=== PATIENT | male | born 1955 | race Two or more races ===

== ENCOUNTER 2020-08-27 03:21 | Emergency (ER) | payer OTHER ==
[2020-08-27 03:44] VITALS: BP 114/82; PULSE 73; TEMP 97.5; BMI 27.8
[2020-08-27 04:56] LABS: BASO % 0.2 % (0-2.0); EOS % 0.7 % (0-4.5); HEMATOCRIT 40.1 % (35.4-49); HEMOGLOBIN 13.3 GM/dL (11.7-16.9); LYMPH % 15.5 % (8-40); MCH 29.8 pg (25.7-33.7); MCHC 33.3 g/dl (32.0-35.9); MEAN CELL VOLUME 89.5 fl (80-96); MEAN PLT VOLUME 8.1 fl (7.5-11.1); MONO % 2.9 % (3.8-10.2); NEUT % 80.7 % (42.8-82.8); PLATELET COUNT 278 K/MM3 (134-434); RBC 4.48 M/mm3 (4.00-5.60); RDW 14.7 % (11.9-15.9); WHITE BLOOD COUNT 11.3 K/mm3 (4.0-10.0)
[2020-08-27 05:18] LABS: CHLORIDE 105 mmol/L (98-107); SODIUM 138 mmol/L (136-145)
[2020-08-27 05:20] LABS: BLOOD UREA NITROGEN 20.9 mg/dL (7-18); CALCIUM 8.8 mg/dL (8.5-10.1)
[2020-08-27 05:21] LABS: ALBUMIN 3.9 g/dl (3.4-5.0); ANION GAP 10 MMOL/L (8-16); CO2 22 mmol/L (21-32)
[2020-08-27 05:24] LABS: CREATININE 1.5 mg/dL (0.55-1.3); SGOT/AST 50 U/L (15-37); SGPT/ALT 72 U/L (13-61)
[2020-08-27 05:25] LABS: BILIRUBIN,TOTAL 0.3 mg/dL (0.2-1)
[2020-08-27 05:26] LABS: ALK PHOS 161 U/L (45-117)
[2020-08-27 05:53] LABS: GLUCOSE,RANDOM 189 mg/dL (74-106)
== END 2020-08-27 06:30 | disposition home or self-care (01) ==
LOC: FER 03:21
DX: F10.920 Alcohol use, unspecified with intoxication, uncomplicated (principal)
CPT/HCPCS: 36415; 70450-TC; 80053; 80307; 82550; 82553; 84484; 85025; 93005; 99284-25